=== PATIENT | male | born 1945 | race Caucasian/White ===

== ENCOUNTER 2018-10-02 19:30 | Observation (INO) | payer MEDICARE, BC ==
[2018-10-02] MEDS ORDERED: Sodium Chloride 0.9% 10 ML Syringe FLUSH PRN (20:25)
[2018-10-02] MEDS ORDERED: Sodium Chloride 0.9% 1,000 ML IV SCH (20:30)
--- NOTE | 2018-10-02 20:32 | EDM.PDOC ---
ED HPI GENERAL MEDICAL PROBLEM - General Chief Complaint: Fever Stated Complaint: FEVER/WEAKNESS Time Seen by Provider: 10/02/18 19:48 Source of Information: Reports: Patient, Family History Limitations: Reports: No Limitations - History of Present Illness INITIAL COMMENTS - FREE TEXT/NARRATIVE: Pleasant male, comes in with complaints of fever, lethargy, elevated blood sugars. He states he was fine this morning. He and his drove down from [facility]; she took over driving because she felt he was driving erratic. When they arrived, he went to take a nap; when he woke, he had a fever of 100.4. He has a hx of bacteremia, sepsis (once in 2014 and 2018), DM, GI bleed, AAA ( stable), small vessel disease, Blocked Left carotid artery. Has chronic pain and neuropathy Onset: Today - Related Data Allergies Allergy/AdvReac Type Severity Reaction Status Date / Time ceftriaxone [From Rocephin] Allergy Difficulty Verified 10/02/18 19:52 Swallowing lisinopril Allergy Cough Verified 10/02/18 19:52 Penicillins Allergy Difficulty Verified 10/02/18 19:52 Swallowing pneumococcal vaccine Allergy Difficulty Verified 10/02/18 20:04 [From Pneumovax 23] Breathing sildenafil [From Viagra] Allergy Other Verified 10/02/18 19:52 sulfamethoxazole Allergy Cannot Verified 10/02/18 19:52 [From Bactrim] Remember trimethoprim [From Bactrim] Allergy Cannot Verified 10/02/18 19:52 Remember Home Meds: Home Meds Acetaminophen 1,000 mg PO DAILY 10/02/18 [History] Acetaminophen/HYDROcodone [Hertel 325-5 MG] 1 tab PO Q4H PRN 10/02/18 [History] Ascorbate Calcium/Bioflavonoid [Karmen-C 500 MG] 500 mg PO DAILY 10/02/18 [ History] Aspirin [Halfprin] 81 mg PO DAILY 10/02/18 [History] Azelastine [Optivar 0.05% Ophth Soln] 2 spray IN DAILY 10/02/18 [History] Ferrous Sulfate 325 mg PO DAILY 10/02/18 [History] Gabapentin [Neurontin] 600 mg PO BID 10/02/18 [History] Insulin NPH/Insulin Reg,Human [Novolin 70-30] 27 units PO DAILY 10/02/18 [ History] Levothyroxine 25 mcg PO ACBREAKFAST 10/02/18 [History] Losartan [Cozaar] 100 mg PO DAILY 10/02/18 [History] Memantine HCl 10 mg PO ASDIRECTED 10/02/18 [History] Methocarbamol [Robaxin-750] 750 mg PO DAILY 10/02/18 [History] Metoprolol Succinate 25 mg PO DAILY 10/02/18 [History] Multivit-Min/FA/Lycopen/Lutein [Centrum Silver Men Tablet] 1 each PO DAILY 10/02 [History] Nitroglycerin [Nitrostat] 0.4 mg SL ASDIRECTED 10/02/18 [History] [place]-3/DHA/Epa/Fish Oil [Fish Oil 1,000 mg Softgel] 2,000 mg PO DAILY 10/02/18 [History] Omeprazole 20 mg PO DAILY 10/02/18 [History] Saliva Substitution Combo No.9 [Biotene] 237 ml MM ASDIRECTED 10/02/18 [History] Sennosides/Docusate Sodium [Docusate Sodium-Senna Tablet] 1 each PO ASDIRECTED 10/02/18 [History] Sertraline [Zoloft] 75 mg PO DAILY 10/02/18 [History] amLODIPine [Norvasc] 10 mg PO DAILY 10/02/18 [History] traMADol HCl [Tramadol HCl] 50 g PO BID 10/02/18 [History] traZODone HCl [Trazodone HCl] 50 mg PO DAILY 10/02/18 [History] Past Medical History HEENT History: Reports: Cataract, Impaired Vision Cardiovascular History: Reports: HI, Stents Respiratory History: Reports: COPD Gastrointestinal History: Reports: GI Bleed Other Gastrointestinal History: chronic intermittent GI bleed Musculoskeletal History: Reports: Back Pain, Chronic, Neck Pain, Chronic Other Musculoskeletal History: fusion of c-spine. fusion of lumbar spine. foot drop of left foot Neurological History: Reports: Neuropathy, Diabetic, Neuropathy, Peripheral Other Neuro History: dementia Psychiatric History: Reports: Dementia, Depression Endocrine/Metabolic History: Reports: Diabetes, Type II, Hypothyroidism Hematologic History: Reports: Anemia - Past Surgical History HEENT Surgical History: Reports: Tonsillectomy Cardiovascular Surgical History: Reports: Carotid Endarterectomy, Carotid Stents Other GI Surgeries/Procedures: coil in stomach Neurological Surgical History: Reports: C-Spine, Lumbar Spine, Spinal Fusion Social & Family History - Tobacco Use Smoking Status *Q: Former Smoker Years of Tobacco use: 30 Used Tobacco, but Quit: Yes Month/Year Tobacco Last Used: 03/1989 - Caffeine Use Caffeine Use: Reports: Coffee, Soda Caffeine Use Comment: daily coffee, diet soda daily - Recreational Drug Use Recreational Drug Use: No ED ROS GENERAL - Review of Systems Review Of Systems: See Below Constitutional: Reports: Fever, Malaise, Weakness, Fatigue HEENT: Reports: No Symptoms Respiratory: Reports: No Symptoms Cardiovascular: Reports: No Symptoms Endocrine: Reports: Fatigue, High Glucose GI/Abdominal: Reports: Abdominal Pain : Reports: No Symptoms Musculoskeletal: Reports: No Symptoms Skin: Reports: No Symptoms Neurological: Reports: Weakness Psychiatric: Reports: No Symptoms ED EXAM, GENERAL - Physical Exam Exam: See Below Exam Limited By: No Limitations General Appearance: Alert, WD/WN, No Apparent Distress Eye Exam: Bilateral Eye: EOMI, PERRL, Other (bilateral lens implants) Ears: Normal External Exam Nose: Normal Inspection Throat/Mouth: Normal Inspection, Normal Lips, Normal Teeth, Normal Gums, Normal Oropharynx, Normal Voice, No Airway Compromise Head: Atraumatic, Normocephalic Neck: Normal Inspection, Supple, Non-Tender, Full Range of Motion Respiratory/Chest: No Respiratory Distress, Lungs Clear, Normal Breath Sounds Cardiovascular: Regular Rate, Rhythm GI/Abdominal: Normal Bowel Sounds, Soft, Non-Tender Extremities: Normal Inspection, Normal Range of Motion Neurological: Alert, Oriented, CN II-XII Intact, Normal Cognition Psychiatric: Normal Affect, Normal Mood Skin Exam: Warm, Dry, Intact, Normal Color Course - Vital Signs Last Recorded V/S: Last Vital Signs Temp 99.3 F 10/02/18 19:53 Pulse 68 10/02/18 21:07 Resp 15 10/02/18 21:07 BP 129/104 H 10/02/18 21:07 Pulse Ox 93 L 10/02/18 21:07 - Orders/Labs/Meds Orders: Active Orders 24 hr Category Date Time Status Peripheral IV Care [RC] . DIRECTED Care 10/02/18 20:25 Active CULTURE BLOOD [BC] Stat Lab 10/02/18 21:40 Received CULTURE BLOOD [BC] Stat Lab 10/02/18 21:50 Received CULTURE URINE [RM] Stat Lab 10/02/18 21:32 Received Acetaminophen [Tylenol Extra Strength] Med 10/02/18 20:24 Active 1,000 mg PO Q12H PRN Sodium Chloride 0.9% [Normal Saline] 1,000 ml Med 10/02/18 20:30 Active IV ASDIRECTED Sodium Chloride 0.9% [Saline Flush] Med 10/02/18 20:25 Active 10 ml FLUSH ASDIRECTED PRN Peripheral IV Insertion Adult [OM.PC] Stat Oth 10/02/18 20:24 Ordered Medication Orders Acetaminophen (Tylenol Extra Strength) 1,000 mg PO Q12H PRN PRN Reason: Pain Last Admin: 10/02/18 20:45 Dose: 1,000 mg Sodium Chloride (Normal Saline) 1,000 mls @ 999 mls/hr IV ASDIRECTED EZ Last Admin: 10/02/18 20:45 Dose: 999 mls/hr Sodium Chloride (Saline Flush) 10 ml FLUSH ASDIRECTED PRN PRN Reason: Keep Vein Open Last Admin: 10/02/18 20:45 Dose: 10 ml Labs: Laboratory Tests 10/02/18 10/02/18 10/02/18 Range/Units 20:39 20:46 20:46 WBC 14.1 H (4.5-11.0) K/uL RBC 3.83 L (4.30-5.90) M/uL Hgb 12.2 (12.0-15.0) g/dL Hct 35.8 L (40.0-54.0) % MCV 94 (80-98) fL MCH 32 H (27-31) pg MCHC 34 (32-36) % Plt Count 263 (150-400) K/uL Neut % (Auto) 69 H (36-66) % Lymph % (Auto) 15 L (24-44) % [place] % (Auto) 15 H (2-6) % Eos % (Auto) 2 (2-4) % Baso % (Auto) 0 (0-1) % Sodium 136 L (140-148) mmol/L Potassium 4.6 (3.6-5.2) mmol/L Chloride 99 L (100-108) mmol/L Carbon Dioxide 26 (21-32) mmol/L Anion Gap 15.6 H (5.0-14.0) mmol/L BUN 23 H (7-18) mg/dL Creatinine 1.4 H (0.8-1.3) mg/dL Est Cr Clr Drug Dosing 48.56 mL/min Estimated GFR (MDRD) 49 L (>60) Glucose 293 H (74-106) mg/dL Lactic Acid (0.4-2.0) mmol/L Calcium 8.9 (8.5-10.1) mg/dL Total Bilirubin 0.6 (0.2-1.0) mg/dL AST 23 (15-37) U/L ALT 23 (12-78) U/L Alkaline Phosphatase 68 (46-116) U/L Troponin I < 0.017 (0.000-0.056) ng/mL C-Reactive Protein (0.0-0.3) mg/dL Total Protein 7.5 (6.4-8.2) g/dL Albumin 3.4 (3.4-5.0) g/dL Globulin 4.1 H (2.3-3.5) g/dL Albumin/Globulin Ratio 0.8 L (1.2-2.2) Urine Color Yellow Urine Appearance Clear Urine pH 5.0 (4.5-8.0) Ur Specific [place] 1.015 (1.008-1.030) Urine Protein Negative (NEGATIVE) mg/dL Urine Glucose (UA) >=1000 H (NEGATIVE) mg/dL Urine Ketones Negative (NEGATIVE) mg/dL Urine Occult Blood Large (NEGATIVE) Urine Nitrite Negative (NEGAITVE) Urine Bilirubin Negative (NEGATIVE) Urine Urobilinogen Normal (NORMAL) mg/dL Ur Leukocyte Esterase Moderate (NEGATIVE) Urine RBC 20-30 H (0-5) Urine WBC 30-40 H (0-5) Ur Epithelial Cells Few Amorphous Sediment Not seen Urine Bacteria Moderate Urine Mucus Not seen Ketones (NEGATIVE) 10/02/18 10/02/18 10/02/18 Range/Units 20:46 20:46 20:46 WBC (4.5-11.0) K/uL RBC (4.30-5.90) M/uL Hgb (12.0-15.0) g/dL Hct (40.0-54.0) % MCV (80-98) fL MCH (27-31) pg MCHC (32-36) % Plt Count (150-400) K/uL Neut % (Auto) (36-66) % Lymph % (Auto) (24-44) % [place] % (Auto) (2-6) % Eos % (Auto) (2-4) % Baso % (Auto) (0-1) % Sodium (140-148) mmol/L Potassium (3.6-5.2) mmol/L Chloride (100-108) mmol/L Carbon Dioxide (21-32) mmol/L Anion Gap (5.0-14.0) mmol/L BUN (7-18) mg/dL Creatinine (0.8-1.3) mg/dL Est Cr Clr Drug Dosing mL/min Estimated GFR (MDRD) (>60) Glucose (74-106) mg/dL Lactic Acid 1.8 (0.4-2.0) mmol/L Calcium (8.5-10.1) mg/dL Total Bilirubin (0.2-1.0) mg/dL AST (15-37) U/L ALT (12-78) U/L Alkaline Phosphatase (46-116) U/L Troponin I (0.000-0.056) ng/mL C-Reactive Protein 13.76 H (0.0-0.3) mg/dL Total Protein (6.4-8.2) g/dL Albumin (3.4-5.0) g/dL Globulin (2.3-3.5) g/dL Albumin/Globulin Ratio (1.2-2.2) Urine Color Urine Appearance Urine pH (4.5-8.0) Ur Specific [place] (1.008-1.030) Urine Protein (NEGATIVE) mg/dL Urine Glucose (UA) (NEGATIVE) mg/dL Urine Ketones (NEGATIVE) mg/dL Urine Occult Blood (NEGATIVE) Urine Nitrite (NEGAITVE) Urine Bilirubin (NEGATIVE) Urine Urobilinogen (NORMAL) mg/dL Ur Leukocyte Esterase (NEGATIVE) Urine RBC (0-5) Urine WBC (0-5) Ur Epithelial Cells Amorphous Sediment Urine Bacteria Urine Mucus Ketones Negative (NEGATIVE) Meds: Medications Generic Name Dose Route Start Last Admin Trade Name Freq PRN Reason Stop Dose Admin Acetaminophen 1,000 mg 10/02/18 20:24 10/02/18 20:45 Tylenol Extra Strength PO 1,000 mg Q12H PRN Administration Pain Sodium Chloride 1,000 mls @ 999 mls/hr 10/02/18 20:30 10/02/18 20:45 Normal Saline IV 999 mls/hr ASDIRECTED EZ Administration Sodium Chloride 10 ml 10/02/18 20:25 10/02/18 20:45 Saline Flush FLUSH 10 ml ASDIRECTED PRN Administration Keep Vein Open Discontinued Medications Generic Name Dose Route Start Last Admin Trade Name Freq PRN Reason Stop Dose Admin Ceftriaxone Sodium 1 gm/ 50 mls @ 100 mls/hr 10/02/18 21:39 10/02/18 22:10 Sodium Chloride IV 10/02/18 22:08 100 mls/hr ONETIME ONE Administration - Re-Assessments/Exams Free Text/Narrative Re-Assessment/Exam: 10/02/18 21:40 Patient is resting comfortably; Fever has broke, blood pressure is decreased. Dr. Donald is transmission builder; will come to see patient. Departure - Departure Time of Disposition: 21:41 Disposition: Refer to Observation Condition: Fair Clinical Impression: Acute cystitis with hematuria - Discharge Information *PRESCRIPTION DRUG MONITORING PROGRAM REVIEWED*: Not Applicable *COPY OF PRESCRIPTION DRUG MONITORING REPORT IN PATIENT KEEGAN: Not Applicable Referrals: PCP,None [Primary Care Provider] - Forms: ED Department Discharge ED Communication - Discussed Case With (1) Discussed Case With (1): Admitting Provider (Dr. Rodriguez called [phone] for consult and admission.), Other Provider (Spoke with Dr. Avalos, [facility]; he feels that as long as patient is in observation, and not septic, it is most appropriate that he stay here in [place] for continued treatment.) - Problem List & Annotations (1) Acute cystitis with hematuria SNOMED Code(s): 75835307, 52508819 Code(s): N30.01 - ACUTE CYSTITIS WITH HEMATURIA Status: Acute Priority: Medium Current Visit: Yes - My Orders Last 24 Hours: My Active Orders 10/02/18 20:24 Acetaminophen [Tylenol Extra Strength] 1,000 mg PO Q12H PRN Peripheral IV Insertion Adult [OM.PC] Stat 10/02/18 20:25 Peripheral IV Care [RC] . DIRECTED Sodium Chloride 0.9% [Saline Flush] 10 ml FLUSH ASDIRECTED PRN 10/02/18 20:30 Sodium Chloride 0.9% [Normal Saline] 1,000 ml IV ASDIRECTED 10/02/18 21:32 CULTURE URINE [RM] Stat 10/02/18 21:40 CULTURE BLOOD [BC] Stat 10/02/18 21:50 CULTURE BLOOD [BC] Stat - Assessment/Plan Last 24 Hours: My Active Orders 10/02/18 20:24 Acetaminophen [Tylenol Extra Strength] 1,000 mg PO Q12H PRN Peripheral IV Insertion Adult [OM.PC] Stat 10/02/18 20:25 Peripheral IV Care [RC] . DIRECTED Sodium Chloride 0.9% [Saline Flush] 10 ml FLUSH ASDIRECTED PRN 10/02/18 20:30 Sodium Chloride 0.9% [Normal Saline] 1,000 ml IV ASDIRECTED 10/02/18 21:32 CULTURE URINE [RM] Stat 10/02/18 21:40 CULTURE BLOOD [BC] Stat 10/02/18 21:50 CULTURE BLOOD [BC] Stat
[2018-10-02] MEDS: Acetaminophen 500 MG Tab PO PRN (20:45)
--- NOTE | 2018-10-02 21:30 | CRLCR ---
HISTORY: Weakness, fever. TECHNIQUE: One view chest. COMPARISON: No prior. FINDINGS: Cardiac size is within normal limits accounting for technique. No consolidation or acute pulmonary edema. No pneumothorax or pleural effusion. Degenerative changes of the spine. IMPRESSION: No acute disease. Dictated by Norberto Shaw MD @ 10/02/2018 9:27:57 PM Dictated by: Norberto Shaw MD @ 10/02/2018 21:28:01 (Electronically Signed)
[2018-10-02] MEDS ORDERED: cefTRIAXone 1 GM in Sodium Chloride 0.9% 50 ML IV ONE (21:39)
[2018-10-02] MEDS ORDERED: Ondansetron 4 MG Tab.DIS PO PRN (22:41)
[2018-10-02] MEDS ORDERED: Albuterol 0.083% 2.5 MG/3 ML Neb Soln NEB PRN (22:41)
--- NOTE | 2018-10-02 22:41 | PCM.HP ---
H&P History of Present Illness - General Date of Service: 10/02/18 Admit Problem/Dx: Complicated UTI - History of Present Illness Initial Comments - Free Text/Narative: 72-year-old male with past medical history of recurrent sepsis, CKD, diabetes on insulin, hypertension, iron deficiency anemia, hypothyroidism, GERD, CAD, depression, anxiety, recurrent GI bleeds came to the ED with a concerns of increased urinary frequency associated with abnormal smell in the urine. Patient accompanied with . reports that patient has intermittent confusion since last 2 to 3 hours. With that concerns patient came to the ED and patient lab work showed urinary tract infection. In the ED patient received Rocephin 1 dose and IV fluids. Lactic acid is 1.4. WBC count is elevated. Patient has recurrent fevers. Patient is a full code. Patient denies any chest pain, breathing difficulty, headaches, dizziness, lightheadedness, disturbance in bowel habits. Other review of systems are not significant. Generalized Pain Score (Numeric/FACES): 0 - Related Data Allergies/Adverse Reactions: Allergies Allergy/AdvReac Type Severity Reaction Status Date / Time ceftriaxone [From Rocephin] Allergy Difficulty Verified 10/02/18 19:52 Swallowing Penicillins Allergy Difficulty Verified 10/02/18 19:52 Swallowing pneumococcal vaccine Allergy Difficulty Verified 10/02/18 20:04 [From Pneumovax 23] Breathing sildenafil [From Viagra] Allergy Other Verified 10/02/18 23:14 sulfamethoxazole Allergy Cannot Verified 10/02/18 23:14 [From Bactrim] Remember trimethoprim [From Bactrim] Allergy Cannot Verified 10/02/18 19:52 Remember lisinopril AdvReac Cough Verified 10/03/18 08:10 Home Medications: Home Meds Acetaminophen 1,000 mg PO DAILY 10/02/18 [History] Acetaminophen/HYDROcodone [[place] 325-5 MG] 1 tab PO Q4H PRN 10/02/18 [History] Ascorbate Calcium/Bioflavonoid [[place]-C 500 MG] 500 mg PO DAILY 10/02/18 [ History] Aspirin [Halfprin] 81 mg PO DAILY 10/02/18 [History] Azelastine [Optivar 0.05% Ophth Soln] 2 spray IN DAILY 10/02/18 [History] Ferrous Sulfate 325 mg PO DAILY 10/02/18 [History] Gabapentin [Neurontin] 600 mg PO BID 10/02/18 [History] Insulin NPH/Insulin Reg,Human [Novolin 70-30] 27 units PO DAILY 10/02/18 [ History] Levothyroxine 25 mcg PO ACBREAKFAST 10/02/18 [History] Losartan [Cozaar] 100 mg PO DAILY 10/02/18 [History] Memantine HCl 10 mg PO ASDIRECTED 10/02/18 [History] Methocarbamol [Robaxin-750] 750 mg PO DAILY 10/02/18 [History] Metoprolol Succinate 25 mg PO DAILY 10/02/18 [History] Multivit-Min/FA/Lycopen/Lutein [Centrum Silver Men Tablet] 1 each PO DAILY 10/02 [History] Nitroglycerin [Nitrostat] 0.4 mg SL ASDIRECTED 10/02/18 [History] [place]-3/DHA/Epa/Fish Oil [Fish Oil 1,000 mg Softgel] 2,000 mg PO DAILY 10/02/18 [History] Omeprazole 20 mg PO DAILY 10/02/18 [History] Saliva Substitution Combo No.9 [Biotene] 237 ml MM ASDIRECTED 10/02/18 [History] Sennosides/Docusate Sodium [Docusate Sodium-Senna Tablet] 1 each PO ASDIRECTED 10/02/18 [History] Sertraline [Zoloft] 75 mg PO DAILY 10/02/18 [History] amLODIPine [Norvasc] 10 mg PO DAILY 10/02/18 [History] traMADol HCl [Tramadol HCl] 50 g PO BID 10/02/18 [History] traZODone HCl [Trazodone HCl] 50 mg PO DAILY 10/02/18 [History] Ciprofloxacin [Ciprofloxacin HCl] 500 mg PO BID #16 tab 10/03/18 [Rx] Insulin NPH/Insulin Reg,Human [Novolin 70-30] 12 unit SQ WITHDINNER 10/03/18 [ History] Past Medical History HEENT History: Reports: Cataract, Impaired Vision Cardiovascular History: Reports: MS, Stents Respiratory History: Reports: COPD Gastrointestinal History: Reports: GI Bleed Other Gastrointestinal History: chronic intermittent GI bleed Musculoskeletal History: Reports: Back Pain, Chronic, Neck Pain, Chronic Other Musculoskeletal History: fusion of c-spine. fusion of lumbar spine. foot drop of left foot Neurological History: Reports: Neuropathy, Diabetic, Neuropathy, Peripheral Other Neuro History: dementia Psychiatric History: Reports: Dementia, Depression Endocrine/Metabolic History: Reports: Diabetes, Type II, Hypothyroidism Hematologic History: Reports: Anemia - Past Surgical History HEENT Surgical History: Reports: Tonsillectomy Cardiovascular Surgical History: Reports: Carotid Endarterectomy, Carotid Stents Other GI Surgeries/Procedures: coil in stomach Neurological Surgical History: Reports: C-Spine, Lumbar Spine, Spinal Fusion Social & Family History - Family History Family Medical History: Noncontributory - Tobacco Use Smoking Status *Q: Former Smoker Years of Tobacco use: 30 Used Tobacco, but Quit: Yes Month/Year Tobacco Last Used: 03/1989 - Caffeine Use Caffeine Use: Reports: Coffee, Soda Caffeine Use Comment: daily coffee, diet soda daily - Recreational Drug Use Recreational Drug Use: No H&P Review of Systems - Review of Systems: Review Of Systems: See Below General: Reports: Fever, Chills, Malaise, Weakness, Fatigue Pulmonary: Denies: Shortness of Breath, Wheezing, Pleuritic Chest Pain, Cough, Sputum Cardiovascular: Denies: Chest Pain, Palpitations, Dyspnea on Exertion, Orthopnea , PND, Lightheadedness, Syncope Gastrointestinal: Reports: Abdominal Pain, Nausea, Vomiting. Denies: Anorexia, Black Stool, Bloody Stool, Melena, Mucous in Stool, Stool Incontinence Genitourinary: Reports: Dysuria, Frequency, Burning, Urgency, Hematuria. Denies : Pain, Incontinence Psychiatric: Reports: Confusion. Denies: Depression, Mood Lability, Anxiety, Agitation Neurological: Denies: Confusion, Dizziness, Headache Hematologic/Lymphatic: Denies: Anemia, Easy Bleeding Exam - Exam Exam: See Below - Vital Signs Vital Signs: Last Vital Signs Temp 37.4 C 10/02/18 19:53 Pulse 68 10/02/18 21:07 Resp 15 10/02/18 21:07 BP 129/104 H 10/02/18 21:07 Pulse Ox 93 L 10/02/18 21:07 Weight: 92.986 kg - Exam General: Alert, Oriented Neck: Supple, Trachea Midline Lungs: Clear to Auscultation, Normal Respiratory Effort. No: Decreased Breath Sounds, Crackles, Rales Cardiovascular: Regular Rate, Regular Rhythm GI/Abdominal Exam: Normal Bowel Sounds, Soft, Non-Tender, No Organomegaly, No Distention, No Abnormal Bruit Extremities: Normal Inspection, Normal Range of Motion, Non-Tender, No Pedal Edema, Normal Capillary Refill Skin: Warm, Dry, Intact Neuro Extensive - Mental Status: Alert, Oriented x3, Memory Intact Psychiatric: Alert, Normal Mood, Anxious, Agitated - Patient Data Lab Results Last 24 hrs: Laboratory Results - last 24 hr 10/02/18 10/02/18 10/02/18 Range/Units 20:39 20:46 20:46 WBC 14.1 H (4.5-11.0) K/uL RBC 3.83 L (4.30-5.90) M/uL Hgb 12.2 (12.0-15.0) g/dL Hct 35.8 L (40.0-54.0) % MCV 94 (80-98) fL MCH 32 H (27-31) pg MCHC 34 (32-36) % Plt Count 263 (150-400) K/uL Neut % (Auto) 69 H (36-66) % Lymph % (Auto) 15 L (24-44) % [place] % (Auto) 15 H (2-6) % Eos % (Auto) 2 (2-4) % Baso % (Auto) 0 (0-1) % Sodium 136 L (140-148) mmol/L Potassium 4.6 (3.6-5.2) mmol/L Chloride 99 L (100-108) mmol/L Carbon Dioxide 26 (21-32) mmol/L Anion Gap 15.6 H (5.0-14.0) mmol/L BUN 23 H (7-18) mg/dL Creatinine 1.4 H (0.8-1.3) mg/dL Est Cr Clr Drug Dosing 48.56 mL/min Estimated GFR (MDRD) 49 L (>60) Glucose 293 H (74-106) mg/dL Lactic Acid (0.4-2.0) mmol/L Calcium 8.9 (8.5-10.1) mg/dL Total Bilirubin 0.6 (0.2-1.0) mg/dL AST 23 (15-37) U/L ALT 23 (12-78) U/L Alkaline Phosphatase 68 (46-116) U/L Troponin I < 0.017 (0.000-0.056) ng/mL C-Reactive Protein (0.0-0.3) mg/dL Total Protein 7.5 (6.4-8.2) g/dL Albumin 3.4 (3.4-5.0) g/dL Globulin 4.1 H (2.3-3.5) g/dL Albumin/Globulin Ratio 0.8 L (1.2-2.2) Urine Color Yellow Urine Appearance Clear Urine pH 5.0 (4.5-8.0) Ur Specific [place] 1.015 (1.008-1.030) Urine Protein Negative (NEGATIVE) mg/dL Urine Glucose (UA) >=1000 H (NEGATIVE) mg/dL Urine Ketones Negative (NEGATIVE) mg/dL Urine Occult Blood Large (NEGATIVE) Urine Nitrite Negative (NEGAITVE) Urine Bilirubin Negative (NEGATIVE) Urine Urobilinogen Normal (NORMAL) mg/dL Ur Leukocyte Esterase Moderate (NEGATIVE) Urine RBC 20-30 H (0-5) Urine WBC 30-40 H (0-5) Ur Epithelial Cells Few Amorphous Sediment Not seen Urine Bacteria Moderate Urine Mucus Not seen Ketones (NEGATIVE) 10/02/18 10/02/18 10/02/18 Range/Units 20:46 20:46 20:46 WBC (4.5-11.0) K/uL RBC (4.30-5.90) M/uL Hgb (12.0-15.0) g/dL Hct (40.0-54.0) % MCV (80-98) fL MCH (27-31) pg MCHC (32-36) % Plt Count (150-400) K/uL Neut % (Auto) (36-66) % Lymph % (Auto) (24-44) % [place] % (Auto) (2-6) % Eos % (Auto) (2-4) % Baso % (Auto) (0-1) % Sodium (140-148) mmol/L Potassium (3.6-5.2) mmol/L Chloride (100-108) mmol/L Carbon Dioxide (21-32) mmol/L Anion Gap (5.0-14.0) mmol/L BUN (7-18) mg/dL Creatinine (0.8-1.3) mg/dL Est Cr Clr Drug Dosing mL/min Estimated GFR (MDRD) (>60) Glucose (74-106) mg/dL Lactic Acid 1.8 (0.4-2.0) mmol/L Calcium (8.5-10.1) mg/dL Total Bilirubin (0.2-1.0) mg/dL AST (15-37) U/L ALT (12-78) U/L Alkaline Phosphatase (46-116) U/L Troponin I (0.000-0.056) ng/mL C-Reactive Protein 13.76 H (0.0-0.3) mg/dL Total Protein (6.4-8.2) g/dL Albumin (3.4-5.0) g/dL Globulin (2.3-3.5) g/dL Albumin/Globulin Ratio (1.2-2.2) Urine Color Urine Appearance Urine pH (4.5-8.0) Ur Specific [place] (1.008-1.030) Urine Protein (NEGATIVE) mg/dL Urine Glucose (UA) (NEGATIVE) mg/dL Urine Ketones (NEGATIVE) mg/dL Urine Occult Blood (NEGATIVE) Urine Nitrite (NEGAITVE) Urine Bilirubin (NEGATIVE) Urine Urobilinogen (NORMAL) mg/dL Ur Leukocyte Esterase (NEGATIVE) Urine RBC (0-5) Urine WBC (0-5) Ur Epithelial Cells Amorphous Sediment Urine Bacteria Urine Mucus Ketones Negative (NEGATIVE) Result Diagrams: 10/04/18 05:32 10/04/18 05:32 - Problem List (1) Anxiety and depression SNOMED Code(s): 914006192 ICD Code: F41.9 - ANXIETY DISORDER, UNSPECIFIED; F32.9 - MAJOR DEPRESSIVE DISORDER, SINGLE EPISODE, UNSPECIFIED Status: Acute (2) Recurrent gastrointestinal hemorrhage SNOMED Code(s): 060776016 ICD Code: K92.2 - GASTROINTESTINAL HEMORRHAGE, UNSPECIFIED Status: Acute (3) GERD (gastroesophageal reflux disease) SNOMED Code(s): 481807683 ICD Code: K21.9 - GASTRO-ESOPHAGEAL REFLUX DISEASE WITHOUT ESOPHAGITIS Status: Acute (4) Hypertension SNOMED Code(s): 79926036 ICD Code: I10 - ESSENTIAL (PRIMARY) HYPERTENSION Status: Acute (5) CAD (coronary artery disease) SNOMED Code(s): 84929373 ICD Code: I25.10 - ATHSCL HEART DISEASE OF [place] CORONARY ARTERY W/O ANG PCTRS Status: Acute (6) Acute cystitis with hematuria SNOMED Code(s): 34599671, 88271852 ICD Code: N30.01 - ACUTE CYSTITIS WITH HEMATURIA Status: Acute Priority: Medium (7) CKD (chronic kidney disease), stage III SNOMED Code(s): 936053218 ICD Code: N18.3 - CHRONIC KIDNEY DISEASE, STAGE 3 (MODERATE) Status: Chronic (8) Diabetes mellitus, type II, insulin dependent SNOMED Code(s): 166830426 ICD Code: E11.9 - TYPE 2 DIABETES MELLITUS WITHOUT COMPLICATIONS; Z79.4 - FPC (CURRENT) USE OF INSULIN Status: Chronic (9) Hypothyroid SNOMED Code(s): 64259876 ICD Code: E03.9 - HYPOTHYROIDISM, UNSPECIFIED Status: Acute Problem List Initiated/Reviewed/Updated: Yes Orders Last 24hrs: Active Orders 24 hr Category Date Time Status Peripheral IV Care [RC] . DIRECTED Care 10/02/18 20:25 Active CULTURE BLOOD [BC] Stat Lab 10/02/18 21:40 Received CULTURE BLOOD [BC] Stat Lab 10/02/18 21:50 Received CULTURE URINE [RM] Stat Lab 10/02/18 21:32 Received Acetaminophen [Tylenol Extra Strength] Med 10/02/18 20:24 Active 1,000 mg PO Q12H PRN Sodium Chloride 0.9% [Normal Saline] 1,000 ml Med 10/02/18 20:30 Active IV ASDIRECTED Sodium Chloride 0.9% [Saline Flush] Med 10/02/18 20:25 Active 10 ml FLUSH ASDIRECTED PRN Peripheral IV Insertion Adult [OM.PC] Stat Oth 10/02/18 20:24 Ordered Medication Orders Acetaminophen (Tylenol Extra Strength) 1,000 mg PO Q12H PRN PRN Reason: Pain Last Admin: 10/02/18 20:45 Dose: 1,000 mg Sodium Chloride (Normal Saline) 1,000 mls @ 999 mls/hr IV ASDIRECTED EZ Last Admin: 10/02/18 20:45 Dose: 999 mls/hr Sodium Chloride (Saline Flush) 10 ml FLUSH ASDIRECTED PRN PRN Reason: Keep Vein Open Last Admin: 10/02/18 20:45 Dose: 10 ml Assessment/Plan Comment:: 72-year-old male with past medical history of recurrent sepsis, CKD, diabetes on insulin, hypertension, iron deficiency anemia, hypothyroidism, GERD, CAD, depression, anxiety came to the ED with a concerns of increased urinary frequency associated with confusion and diagnosed with complicated UTI and admitted into the hospital in observational status. Patient received 1 dose Rocephin We will continue Rocephin at this point CBC CMP tomorrow We will follow blood culture, urine culture report Maintenance IV fluids 150 mL/h normal saline Sliding scale insulin for diabetes Accu-Cheks before meals and at bedtime IV fluids normal saline 150 mL/h Diet low sodium and low carb diet [place] catheter not indicated CODE STATUS full code DVT prophylaxis heparin subcu 8 hourly Observational status
[2018-10-02] MEDS: Sodium Chloride 0.9% 1,000 ML IV SCH (23:55)
[2018-10-02] MEDS: cefTRIAXone 2 GM in Sodium Chloride 0.9% 50 ML IV SCH (23:57)
[2018-10-02] MEDS: Heparin Sodium 5,000 Units/ML Vial SUBCUT SCH (23:58)
[2018-10-03] MEDS ORDERED: traZODone 50 MG Tab PO ONE (00:57)
[2018-10-03] MEDS: cefTRIAXone 2 GM in Sodium Chloride 0.9% 50 ML IV SCH (03:34)
[2018-10-03] MEDS: Heparin Sodium 5,000 Units/ML Vial SUBCUT SCH ×3 (05:47→21:08)
[2018-10-03] MEDS: Sodium Chloride 0.9% 1,000 ML IV SCH ×2 (07:20→15:00)
[2018-10-03] MEDS: Acetaminophen 500 MG Tab PO PRN (07:26)
[2018-10-03] MEDS: Insulin Lispro 100 Unit/ML 3 ML KwikPen SUBCUT SCH ×4 (10:51→21:09)
--- NOTE | 2018-10-03 10:56 | PCM.DCSUM1 ---
Discharge Summary - Hospital Course Brief History: 73-year-old male with history of insulin-dependent diabetes, stage III chronic kidney disease and previous episodes of sepsis secondary to urinary tract infections who presented with fever and dysuria. He was admitted to observation for management of a urinary tract infection. Diagnosis: Stroke: No - Discharge Data Discharge Date: 10/03/18 Discharge Disposition: Home, Self-Care 01 Condition: Good - Discharge Diagnosis/Problem(s) (1) Acute cystitis with hematuria SNOMED Code(s): 25262420, 56507822 ICD Code: N30.01 - ACUTE CYSTITIS WITH HEMATURIA Status: Acute Priority: Medium Current Visit: Yes (2) Diabetes mellitus, type II, insulin dependent SNOMED Code(s): 952788195 ICD Code: E11.9 - TYPE 2 DIABETES MELLITUS WITHOUT COMPLICATIONS; Z79.4 - BOTTLE LABEL INSPECTOR (CURRENT) USE OF INSULIN Status: Chronic Current Visit: Yes (3) CKD (chronic kidney disease), stage III SNOMED Code(s): 759809630 ICD Code: N18.3 - CHRONIC KIDNEY DISEASE, STAGE 3 (MODERATE) Status: Chronic Current Visit: Yes - Patient Summary/Data Consults: Consultations 10/02/18 22:41 OT Evaluation and Treatment [CONS] Routine Please Evaluate and Treat. OT Reason for Consult: Strengthening This query below is only for informational purposes and is not editable. PT Evaluation and Treatment [CONS] Routine Please Evaluate and Treat. PT Reason for Consult: Strengthening This query below is only for informational purposes and is not editable. - Patient Instructions Diet: Diabetic Diet Activity: As Tolerated Showering/Bathing: May Shower Notify Provider of: Fever, Increased Pain Other/Special Instructions: 1. You were in the hospital for management of a urinary tract infection. Your urine culture is pending at this time and we have not determined the causative bacteria as of yet. I recommend additional antibiotic therapy with ciprofloxacin. These take 500 mg twice daily for 8 more days. Your first dose will be due tonight. I will contact you if the culture returns with a bacteria that is resistant to the antibiotic. I do recommend that you take a probiotic while you are taking antibiotics. 2. Continue your other home medications as previously prescribed. 3. Seek medical attention if you fever greater than 101, severe abdominal pain or if you develop profound weakness - Discharge Plan *PRESCRIPTION DRUG MONITORING PROGRAM REVIEWED*: Not Applicable *COPY OF PRESCRIPTION DRUG MONITORING REPORT IN PATIENT KEEGAN: Not Applicable Prescriptions/Med Rec: Ciprofloxacin [Ciprofloxacin HCl] 500 mg PO BID #16 tab Home Medications: Home Meds Acetaminophen 1,000 mg PO DAILY 10/02/18 [History] Acetaminophen/HYDROcodone [[place] 325-5 MG] 1 tab PO Q4H PRN 10/02/18 [History] Ascorbate Calcium/Bioflavonoid [[place]-C 500 MG] 500 mg PO DAILY 10/02/18 [ History] Aspirin [Halfprin] 81 mg PO DAILY 10/02/18 [History] Azelastine [Optivar 0.05% Ophth Soln] 2 spray IN DAILY 10/02/18 [History] Ferrous Sulfate 325 mg PO DAILY 10/02/18 [History] Gabapentin [Neurontin] 600 mg PO BID 10/02/18 [History] Insulin NPH/Insulin Reg,Human [Novolin 70-30] 27 units PO DAILY 10/02/18 [ History] Levothyroxine 25 mcg PO ACBREAKFAST 10/02/18 [History] Losartan [Cozaar] 100 mg PO DAILY 10/02/18 [History] Memantine HCl 10 mg PO ASDIRECTED 10/02/18 [History] Methocarbamol [Robaxin-750] 750 mg PO DAILY 10/02/18 [History] Metoprolol Succinate 25 mg PO DAILY 10/02/18 [History] Multivit-Min/FA/Lycopen/Lutein [Centrum Silver Men Tablet] 1 each PO DAILY 10/02 [History] Nitroglycerin [Nitrostat] 0.4 mg SL ASDIRECTED 10/02/18 [History] [place]-3/DHA/Epa/Fish Oil [Fish Oil 1,000 mg Softgel] 2,000 mg PO DAILY 10/02/18 [History] Omeprazole 20 mg PO DAILY 10/02/18 [History] Saliva Substitution Combo No.9 [Biotene] 237 ml MM ASDIRECTED 10/02/18 [History] Sennosides/Docusate Sodium [Docusate Sodium-Senna Tablet] 1 each PO ASDIRECTED 10/02/18 [History] Sertraline [Zoloft] 75 mg PO DAILY 10/02/18 [History] amLODIPine [Norvasc] 10 mg PO DAILY 10/02/18 [History] traMADol HCl [Tramadol HCl] 50 g PO BID 10/02/18 [History] traZODone HCl [Trazodone HCl] 50 mg PO DAILY 10/02/18 [History] Ciprofloxacin [Ciprofloxacin HCl] 500 mg PO BID #16 tab 10/03/18 [Rx] Oxygen Therapy Mode: Room Air Patient Handouts: Urinary Tract Infection, Adult, Ciprofloxacin tablets Referrals: PCP,None [Primary Care Provider] - (Follow-up as needed if symptoms do not continue to get better or if they get worse) - Discharge Summary/Plan Comment DC Time >30 min.: No - Patient Data Vitals - Most Recent: Last Vital Signs Temp 36.4 C 10/03/18 10:49 Pulse 66 10/03/18 10:49 Resp 18 10/03/18 10:49 BP 121/61 10/03/18 10:49 Pulse Ox 93 L 10/03/18 10:49 Weight - Most Recent: 96.797 kg I&O - Last 24 hours: Intake & Output 10/02/18 10/03/18 10/03/18 22:59 06:59 14:59 Intake Total 100 Output Total 1225 Balance -1125 Lab Results - Last 24 hrs: Laboratory Results - last 24 hr 10/02/18 10/02/18 10/02/18 Range/Units 20:39 20:46 20:46 WBC 14.1 H (4.5-11.0) K/uL RBC 3.83 L (4.30-5.90) M/uL Hgb 12.2 (12.0-15.0) g/dL Hct 35.8 L (40.0-54.0) % MCV 94 (80-98) fL MCH 32 H (27-31) pg MCHC 34 (32-36) % Plt Count 263 (150-400) K/uL Neut % (Auto) 69 H (36-66) % Lymph % (Auto) 15 L (24-44) % [place] % (Auto) 15 H (2-6) % Eos % (Auto) 2 (2-4) % Baso % (Auto) 0 (0-1) % Sodium 136 L (140-148) mmol/L Potassium 4.6 (3.6-5.2) mmol/L Chloride 99 L (100-108) mmol/L Carbon Dioxide 26 (21-32) mmol/L Anion Gap 15.6 H (5.0-14.0) mmol/L BUN 23 H (7-18) mg/dL Creatinine 1.4 H (0.8-1.3) mg/dL Est Cr Clr Drug Dosing 48.56 mL/min Estimated GFR (MDRD) 49 L (>60) Glucose 293 H (74-106) mg/dL Lactic Acid (0.4-2.0) mmol/L Calcium 8.9 (8.5-10.1) mg/dL Total Bilirubin 0.6 (0.2-1.0) mg/dL AST 23 (15-37) U/L ALT 23 (12-78) U/L Alkaline Phosphatase 68 (46-116) U/L Troponin I < 0.017 (0.000-0.056) ng/mL C-Reactive Protein (0.0-0.3) mg/dL Total Protein 7.5 (6.4-8.2) g/dL Albumin 3.4 (3.4-5.0) g/dL Globulin 4.1 H (2.3-3.5) g/dL Albumin/Globulin Ratio 0.8 L (1.2-2.2) Urine Color Yellow Urine Appearance Clear Urine pH 5.0 (4.5-8.0) Ur Specific [place] 1.015 (1.008-1.030) Urine Protein Negative (NEGATIVE) mg/dL Urine Glucose (UA) >=1000 H (NEGATIVE) mg/dL Urine Ketones Negative (NEGATIVE) mg/dL Urine Occult Blood Large (NEGATIVE) Urine Nitrite Negative (NEGAITVE) Urine Bilirubin Negative (NEGATIVE) Urine Urobilinogen Normal (NORMAL) mg/dL Ur Leukocyte Esterase Moderate (NEGATIVE) Urine RBC 20-30 H (0-5) Urine WBC 30-40 H (0-5) Ur Epithelial Cells Few Amorphous Sediment Not seen Urine Bacteria Moderate Urine Mucus Not seen Ketones (NEGATIVE) 10/02/18 10/02/18 10/02/18 Range/Units 20:46 20:46 20:46 WBC (4.5-11.0) K/uL RBC (4.30-5.90) M/uL Hgb (12.0-15.0) g/dL Hct (40.0-54.0) % MCV (80-98) fL MCH (27-31) pg MCHC (32-36) % Plt Count (150-400) K/uL Neut % (Auto) (36-66) % Lymph % (Auto) (24-44) % [place] % (Auto) (2-6) % Eos % (Auto) (2-4) % Baso % (Auto) (0-1) % Sodium (140-148) mmol/L Potassium (3.6-5.2) mmol/L Chloride (100-108) mmol/L Carbon Dioxide (21-32) mmol/L Anion Gap (5.0-14.0) mmol/L BUN (7-18) mg/dL Creatinine (0.8-1.3) mg/dL Est Cr Clr Drug Dosing mL/min Estimated GFR (MDRD) (>60) Glucose (74-106) mg/dL Lactic Acid 1.8 (0.4-2.0) mmol/L Calcium (8.5-10.1) mg/dL Total Bilirubin (0.2-1.0) mg/dL AST (15-37) U/L ALT (12-78) U/L Alkaline Phosphatase (46-116) U/L Troponin I (0.000-0.056) ng/mL C-Reactive Protein 13.76 H (0.0-0.3) mg/dL Total Protein (6.4-8.2) g/dL Albumin (3.4-5.0) g/dL Globulin (2.3-3.5) g/dL Albumin/Globulin Ratio (1.2-2.2) Urine Color Urine Appearance Urine pH (4.5-8.0) Ur Specific [place] (1.008-1.030) Urine Protein (NEGATIVE) mg/dL Urine Glucose (UA) (NEGATIVE) mg/dL Urine Ketones (NEGATIVE) mg/dL Urine Occult Blood (NEGATIVE) Urine Nitrite (NEGAITVE) Urine Bilirubin (NEGATIVE) Urine Urobilinogen (NORMAL) mg/dL Ur Leukocyte Esterase (NEGATIVE) Urine RBC (0-5) Urine WBC (0-5) Ur Epithelial Cells Amorphous Sediment Urine Bacteria Urine Mucus Ketones Negative (NEGATIVE) 10/03/18 10/03/18 Range/Units 05:50 05:50 WBC 13.3 H (4.5-11.0) K/uL RBC 3.73 L (4.30-5.90) M/uL Hgb 12.1 (12.0-15.0) g/dL Hct 35.3 L (40.0-54.0) % MCV 95 (80-98) fL MCH 32 H (27-31) pg MCHC 34 (32-36) % Plt Count 227 (150-400) K/uL Neut % (Auto) 70 H (36-66) % Lymph % (Auto) 13 L (24-44) % [place] % (Auto) 13 H (2-6) % Eos % (Auto) 3 (2-4) % Baso % (Auto) 0 (0-1) % Sodium 139 L (140-148) mmol/L Potassium 4.2 (3.6-5.2) mmol/L Chloride 105 (100-108) mmol/L Carbon Dioxide 23 (21-32) mmol/L Anion Gap 15.2 H (5.0-14.0) mmol/L BUN 22 H (7-18) mg/dL Creatinine 1.3 (0.8-1.3) mg/dL Est Cr Clr Drug Dosing 52.29 mL/min Estimated GFR (MDRD) 54 L (>60) Glucose 260 H (74-106) mg/dL Lactic Acid (0.4-2.0) mmol/L Calcium 8.7 (8.5-10.1) mg/dL Total Bilirubin (0.2-1.0) mg/dL AST (15-37) U/L ALT (12-78) U/L Alkaline Phosphatase (46-116) U/L Troponin I (0.000-0.056) ng/mL C-Reactive Protein (0.0-0.3) mg/dL Total Protein (6.4-8.2) g/dL Albumin (3.4-5.0) g/dL Globulin (2.3-3.5) g/dL Albumin/Globulin Ratio (1.2-2.2) Urine Color Urine Appearance Urine pH (4.5-8.0) Ur Specific [place] (1.008-1.030) Urine Protein (NEGATIVE) mg/dL Urine Glucose (UA) (NEGATIVE) mg/dL Urine Ketones (NEGATIVE) mg/dL Urine Occult Blood (NEGATIVE) Urine Nitrite (NEGAITVE) Urine Bilirubin (NEGATIVE) Urine Urobilinogen (NORMAL) mg/dL Ur Leukocyte Esterase (NEGATIVE) Urine RBC (0-5) Urine WBC (0-5) Ur Epithelial Cells Amorphous Sediment Urine Bacteria Urine Mucus Ketones (NEGATIVE) Med Orders - Current: Current Medications Acetaminophen (Tylenol Extra Strength) 1,000 mg PO Q12H PRN PRN Reason: Pain Last Admin: 10/03/18 07:26 Dose: 1,000 mg Albuterol (Proventil Neb Soln) 2.5 mg NEB Q4H PRN PRN Reason: Shortness Of Breath/wheezing Heparin Sodium (Porcine) (Heparin Sodium) 5,000 units SUBCUT Q8H [facility] Sodium Chloride (Normal Saline) 1,000 mls @ 125 mls/hr IV ASDIRECTED [facility] Last Admin: 10/03/18 07:20 Dose: 125 mls/hr Insulin Human Lispro (Humalog) 0 unit SUBCUT TIDMEALS [facility]; Protocol Last Admin: 10/03/18 10:51 Dose: Not Given Ondansetron HCl (Zofran Odt) 4 mg PO Q6H PRN PRN Reason: Nausea able to take PO Senna/Docusate Sodium (Senna Plus) 1 tab PO BID PRN PRN Reason: Constipation Sodium Chloride (Saline Flush) 10 ml FLUSH ASDIRECTED PRN PRN Reason: Keep Vein Open Last Admin: 10/02/18 20:45 Dose: 10 ml Discontinued Medications Heparin Sodium (Porcine) (Heparin Sodium) 5,000 units SUBCUT Q8H [facility] Last Admin: 10/03/18 05:47 Dose: Not Given Sodium Chloride (Normal Saline) 1,000 mls @ 999 mls/hr IV ASDIRECTED [facility] Last Admin: 10/02/18 20:45 Dose: 999 mls/hr Ceftriaxone Sodium 1 gm/ (Sodium Chloride) 50 mls @ 100 mls/hr IV ONETIME ONE Stop: 10/02/18 22:08 Last Admin: 10/02/18 22:10 Dose: 100 mls/hr Ceftriaxone Sodium 2 gm/ (Sodium Chloride) 50 mls @ 100 mls/hr IV Q24H [facility] Last Admin: 10/03/18 03:34 Dose: Not Given Ceftriaxone Sodium 2 gm/ (Sodium Chloride) 50 mls @ 100 mls/hr IV Q24H [facility] Trazodone HCl (Trazodone) 50 mg PO BEDTIME ONE Stop: 10/03/18 00:58 Last Admin: 10/03/18 02:44 Dose: Not Given - Exam Quality Assessment: Denies: Supplemental Oxygen General: Reports: Alert, Oriented, Cooperative, No Acute Distress Lungs: Reports: Normal Respiratory Effort Cardiovascular: Reports: Regular Rate, Regular Rhythm GI/Abdominal Exam: Soft, No Distention Extremities: No Pedal Edema Psy/Mental Status: Reports: Alert, Normal Affect
[2018-10-03] MEDS ORDERED: Acetaminophen/HYDROcodone 325-5 MG Tab PO PRN (14:32)
--- NOTE | 2018-10-03 14:37 | PCM.PN ---
- General Info Date of Service: 10/03/18 Subjective Update: No acute events overnight. Vital signs have remained stable. Patient is feeling better today and was interested in going home but he continues to have fevers. He did well with physical therapy this morning and is thought to be independent. No complaints of abdominal pain or nausea. White blood cell count slightly better today. Cultures pending. Functional Status: Reports: Pain Controlled, Tolerating Diet - Review of Systems General: Reports: Fever, Weakness - Patient Data Vitals - Most Recent: Last Vital Signs Temp 36.4 C 10/03/18 10:49 Pulse 66 10/03/18 10:49 Resp 18 10/03/18 10:49 BP 121/61 10/03/18 10:49 Pulse Ox 93 L 10/03/18 10:49 Weight - Most Recent: 96.797 kg I&O - Last 24 Hours: Intake & Output 10/02/18 10/03/18 10/03/18 22:59 06:59 14:59 Intake Total 100 820 Output Total 1225 Balance -1125 820 Lab Results Last 24 Hours: Laboratory Results - last 24 hr 10/02/18 10/02/18 10/02/18 Range/Units 20:39 20:46 20:46 WBC 14.1 H (4.5-11.0) K/uL RBC 3.83 L (4.30-5.90) M/uL Hgb 12.2 (12.0-15.0) g/dL Hct 35.8 L (40.0-54.0) % MCV 94 (80-98) fL MCH 32 H (27-31) pg MCHC 34 (32-36) % Plt Count 263 (150-400) K/uL Neut % (Auto) 69 H (36-66) % Lymph % (Auto) 15 L (24-44) % [place] % (Auto) 15 H (2-6) % Eos % (Auto) 2 (2-4) % Baso % (Auto) 0 (0-1) % Sodium 136 L (140-148) mmol/L Potassium 4.6 (3.6-5.2) mmol/L Chloride 99 L (100-108) mmol/L Carbon Dioxide 26 (21-32) mmol/L Anion Gap 15.6 H (5.0-14.0) mmol/L BUN 23 H (7-18) mg/dL Creatinine 1.4 H (0.8-1.3) mg/dL Est Cr Clr Drug Dosing 48.56 mL/min Estimated GFR (MDRD) 49 L (>60) Glucose 293 H (74-106) mg/dL Lactic Acid (0.4-2.0) mmol/L Calcium 8.9 (8.5-10.1) mg/dL Total Bilirubin 0.6 (0.2-1.0) mg/dL AST 23 (15-37) U/L ALT 23 (12-78) U/L Alkaline Phosphatase 68 (46-116) U/L Troponin I < 0.017 (0.000-0.056) ng/mL C-Reactive Protein (0.0-0.3) mg/dL Total Protein 7.5 (6.4-8.2) g/dL Albumin 3.4 (3.4-5.0) g/dL Globulin 4.1 H (2.3-3.5) g/dL Albumin/Globulin Ratio 0.8 L (1.2-2.2) Urine Color Yellow Urine Appearance Clear Urine pH 5.0 (4.5-8.0) Ur Specific [place] 1.015 (1.008-1.030) Urine Protein Negative (NEGATIVE) mg/dL Urine Glucose (UA) >=1000 H (NEGATIVE) mg/dL Urine Ketones Negative (NEGATIVE) mg/dL Urine Occult Blood Large (NEGATIVE) Urine Nitrite Negative (NEGAITVE) Urine Bilirubin Negative (NEGATIVE) Urine Urobilinogen Normal (NORMAL) mg/dL Ur Leukocyte Esterase Moderate (NEGATIVE) Urine RBC 20-30 H (0-5) Urine WBC 30-40 H (0-5) Ur Epithelial Cells Few Amorphous Sediment Not seen Urine Bacteria Moderate Urine Mucus Not seen Ketones (NEGATIVE) 10/02/18 10/02/18 10/02/18 Range/Units 20:46 20:46 20:46 WBC (4.5-11.0) K/uL RBC (4.30-5.90) M/uL Hgb (12.0-15.0) g/dL Hct (40.0-54.0) % MCV (80-98) fL MCH (27-31) pg MCHC (32-36) % Plt Count (150-400) K/uL Neut % (Auto) (36-66) % Lymph % (Auto) (24-44) % [place] % (Auto) (2-6) % Eos % (Auto) (2-4) % Baso % (Auto) (0-1) % Sodium (140-148) mmol/L Potassium (3.6-5.2) mmol/L Chloride (100-108) mmol/L Carbon Dioxide (21-32) mmol/L Anion Gap (5.0-14.0) mmol/L BUN (7-18) mg/dL Creatinine (0.8-1.3) mg/dL Est Cr Clr Drug Dosing mL/min Estimated GFR (MDRD) (>60) Glucose (74-106) mg/dL Lactic Acid 1.8 (0.4-2.0) mmol/L Calcium (8.5-10.1) mg/dL Total Bilirubin (0.2-1.0) mg/dL AST (15-37) U/L ALT (12-78) U/L Alkaline Phosphatase (46-116) U/L Troponin I (0.000-0.056) ng/mL C-Reactive Protein 13.76 H (0.0-0.3) mg/dL Total Protein (6.4-8.2) g/dL Albumin (3.4-5.0) g/dL Globulin (2.3-3.5) g/dL Albumin/Globulin Ratio (1.2-2.2) Urine Color Urine Appearance Urine pH (4.5-8.0) Ur Specific [place] (1.008-1.030) Urine Protein (NEGATIVE) mg/dL Urine Glucose (UA) (NEGATIVE) mg/dL Urine Ketones (NEGATIVE) mg/dL Urine Occult Blood (NEGATIVE) Urine Nitrite (NEGAITVE) Urine Bilirubin (NEGATIVE) Urine Urobilinogen (NORMAL) mg/dL Ur Leukocyte Esterase (NEGATIVE) Urine RBC (0-5) Urine WBC (0-5) Ur Epithelial Cells Amorphous Sediment Urine Bacteria Urine Mucus Ketones Negative (NEGATIVE) 10/03/18 10/03/18 Range/Units 05:50 05:50 WBC 13.3 H (4.5-11.0) K/uL RBC 3.73 L (4.30-5.90) M/uL Hgb 12.1 (12.0-15.0) g/dL Hct 35.3 L (40.0-54.0) % MCV 95 (80-98) fL MCH 32 H (27-31) pg MCHC 34 (32-36) % Plt Count 227 (150-400) K/uL Neut % (Auto) 70 H (36-66) % Lymph % (Auto) 13 L (24-44) % [place] % (Auto) 13 H (2-6) % Eos % (Auto) 3 (2-4) % Baso % (Auto) 0 (0-1) % Sodium 139 L (140-148) mmol/L Potassium 4.2 (3.6-5.2) mmol/L Chloride 105 (100-108) mmol/L Carbon Dioxide 23 (21-32) mmol/L Anion Gap 15.2 H (5.0-14.0) mmol/L BUN 22 H (7-18) mg/dL Creatinine 1.3 (0.8-1.3) mg/dL Est Cr Clr Drug Dosing 52.29 mL/min Estimated GFR (MDRD) 54 L (>60) Glucose 260 H (74-106) mg/dL Lactic Acid (0.4-2.0) mmol/L Calcium 8.7 (8.5-10.1) mg/dL Total Bilirubin (0.2-1.0) mg/dL AST (15-37) U/L ALT (12-78) U/L Alkaline Phosphatase (46-116) U/L Troponin I (0.000-0.056) ng/mL C-Reactive Protein (0.0-0.3) mg/dL Total Protein (6.4-8.2) g/dL Albumin (3.4-5.0) g/dL Globulin (2.3-3.5) g/dL Albumin/Globulin Ratio (1.2-2.2) Urine Color Urine Appearance Urine pH (4.5-8.0) Ur Specific [place] (1.008-1.030) Urine Protein (NEGATIVE) mg/dL Urine Glucose (UA) (NEGATIVE) mg/dL Urine Ketones (NEGATIVE) mg/dL Urine Occult Blood (NEGATIVE) Urine Nitrite (NEGAITVE) Urine Bilirubin (NEGATIVE) Urine Urobilinogen (NORMAL) mg/dL Ur Leukocyte Esterase (NEGATIVE) Urine RBC (0-5) Urine WBC (0-5) Ur Epithelial Cells Amorphous Sediment Urine Bacteria Urine Mucus Ketones (NEGATIVE) Med Orders - Current: Current Medications Acetaminophen (Tylenol) 650 mg PO Q4H PRN PRN Reason: Pain/Fever Hydrocodone Bitart/Acetaminophen ([place] 325-5 Mg) 1 tab PO Q4H PRN PRN Reason: Pain Albuterol (Proventil Neb Soln) 2.5 mg NEB Q4H PRN PRN Reason: Shortness Of Breath/wheezing Amlodipine Besylate (Norvasc) 10 mg PO DAILY [facility] Aspirin (Halfprin) 81 mg PO DAILY [facility] Ciprofloxacin (Ciprofloxacin Hcl) 500 mg PO BID [facility] Heparin Sodium (Porcine) (Heparin Sodium) 5,000 units SUBCUT Q8H [facility] Sodium Chloride (Normal Saline) 1,000 mls @ 125 mls/hr IV ASDIRECTED [facility] Last Admin: 10/03/18 07:20 Dose: 125 mls/hr Insulin Human Isoph/Insulin Regular (Humulin 70-30) 12 units SUBCUT WITHDINNER [facility] Insulin Human Isoph/Insulin Regular (Humulin 70-30) 27 units SUBCUT WITHBREAKFAST [facility] Insulin Human Lispro (Humalog) 0 unit SUBCUT TIDMEALS [facility]; Protocol Last Admin: 10/03/18 11:56 Dose: 3 units Levothyroxine Sodium (Levothyroxine) 25 mcg PO ACBREAKFAST [facility] Metoprolol Succinate (Toprol Xl) 25 mg PO DAILY [facility] Non-Formulary Medication (Gabapentin [Neurontin]) 600 mg PO BID [facility] Non-Formulary Medication (Losartan [Cozaar]) 100 mg PO DAILY [facility] Ondansetron HCl (Zofran Odt) 4 mg PO Q6H PRN PRN Reason: Nausea able to take PO Senna/Docusate Sodium (Senna Plus) 1 tab PO BID PRN PRN Reason: Constipation Sertraline HCl (Zoloft) 75 mg PO DAILY [facility] Sodium Chloride (Saline Flush) 10 ml FLUSH ASDIRECTED PRN PRN Reason: Keep Vein Open Last Admin: 10/02/18 20:45 Dose: 10 ml Discontinued Medications Acetaminophen (Tylenol Extra Strength) 1,000 mg PO Q12H PRN PRN Reason: Pain Last Admin: 10/03/18 07:26 Dose: 1,000 mg Heparin Sodium (Porcine) (Heparin Sodium) 5,000 units SUBCUT Q8H [facility] Last Admin: 10/03/18 05:47 Dose: Not Given Sodium Chloride (Normal Saline) 1,000 mls @ 999 mls/hr IV ASDIRECTED [facility] Last Admin: 10/02/18 20:45 Dose: 999 mls/hr Ceftriaxone Sodium 1 gm/ (Sodium Chloride) 50 mls @ 100 mls/hr IV ONETIME ONE Stop: 10/02/18 22:08 Last Admin: 10/02/18 22:10 Dose: 100 mls/hr Ceftriaxone Sodium 2 gm/ (Sodium Chloride) 50 mls @ 100 mls/hr IV Q24H [facility] Last Admin: 10/03/18 03:34 Dose: Not Given Ceftriaxone Sodium 2 gm/ (Sodium Chloride) 50 mls @ 100 mls/hr IV Q24H [facility] Trazodone HCl (Trazodone) 50 mg PO BEDTIME ONE Stop: 10/03/18 00:58 Last Admin: 10/03/18 02:44 Dose: Not Given - Exam Quality Assessment: No: Supplemental Oxygen General: Alert, Oriented, Cooperative, No Acute Distress Lungs: Normal Respiratory Effort Cardiovascular: Regular Rate, Regular Rhythm GI/Abdominal Exam: Soft, No Distention Extremities: No Pedal Edema Skin: Warm, Dry Psy/Mental Status: Alert, Normal Affect - Problem List & Annotations (1) Acute cystitis with hematuria SNOMED Code(s): 41893037, 91737060 Code(s): N30.01 - ACUTE CYSTITIS WITH HEMATURIA Status: Acute Priority: Medium Current Visit: Yes (2) Diabetes mellitus, type II, insulin dependent SNOMED Code(s): 198142850 Code(s): E11.9 - TYPE 2 DIABETES MELLITUS WITHOUT COMPLICATIONS; 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 Status: Chronic Current Visit: Yes (3) CKD (chronic kidney disease), stage III SNOMED Code(s): 441504786 Code(s): N18.3 - CHRONIC KIDNEY DISEASE, STAGE 3 (MODERATE) Status: Chronic Current Visit: Yes - Problem List Review Problem List Initiated/Reviewed/Updated: Yes - My Orders Last 24 Hours: My Active Orders 10/03/18 10:54 Ready for Discharge [RC] PER UNIT ROUTINE 10/03/18 13:37 Acetaminophen [Tylenol] 650 mg PO Q4H PRN 10/03/18 14:32 Acetaminophen/HYDROcodone [[place] 325-5 MG] 1 tab PO Q4H PRN 10/03/18 14:35 Up With Assistance [RC] ASDIRECTED 10/03/18 14:36 Discontinue Telemetry Monitoring [Cardiac Monitoring Discontinue] [RC] Click to Edit 10/03/18 14:45 Aspirin [Halfprin] 81 mg PO DAILY Gabapentin [Neurontin] 600 mg PO BID Losartan [Cozaar] 100 mg PO DAILY Metoprolol Succinate [Toprol XL] 25 mg PO DAILY amLODIPine [Norvasc] 10 mg PO DAILY 10/03/18 17:00 Insulin NPH/Insulin Reg,Human [HumuLIN 70-30] 12 units SUBCUT WITHDINNER 10/03/18 21:00 Ciprofloxacin [Ciprofloxacin HCl] 500 mg PO BID 10/04/18 05:00 BASIC METABOLIC PANEL,BMP [CHEM] Timed CBC W/O DIFF,HEMOGRAM [HEME] Timed (1) 10/04/18 07:30 Levothyroxine 25 mcg PO ACBREAKFAST 10/04/18 08:00 Insulin NPH/Insulin Reg,Human [HumuLIN 70-30] 27 units SUBCUT WITHBREAKFAST 10/04/18 09:00 Sertraline [Zoloft] 75 mg PO DAILY - Plan Plan:: ASSESSMENT AND PLAN - Acute cystitis without hematuria - no evidence for sepsis. Still spiking fevers but otherwise doing well. -Antibiotic coverage with ciprofloxacin -Continue gentle fluids Insulin-dependent diabetes mellitus - moderate elevation of blood sugars. -Continue home medications -Sliding-scale insulin Stage III chronic kidney disease - creatinine stable at this time. Maintenance issues - - DVT prophylaxis - patient declines SCDs and heparin - GI prophylaxis - restart home PPI after discharge - Nutrition - diabetic diet - Salgado catheter - not indicated Disposition - I anticipate discharge home tomorrow Primary care physician - [place] [facility] Donny Veras M.D.
[2018-10-03] MEDS ORDERED: Non-Formulary Medication 1 Each (Gabapentin [Neurontin] 600 MG) PO SCH (14:45)
[2018-10-03] MEDS ORDERED: Non-Formulary Medication 1 Each (Losartan [Cozaar] 100 MG) PO SCH (14:45)
[2018-10-03] MEDS: Acetaminophen 325 MG Tab PO PRN ×2 (15:02→19:53)
[2018-10-03] MEDS: Aspirin 81 MG Tab.EC PO SCH (15:04)
[2018-10-03] MEDS: Gabapentin 300 MG Cap PO SCH ×2 (15:04→21:02)
[2018-10-03] MEDS: Losartan 50 MG Tab PO SCH (15:05)
[2018-10-03] MEDS: amLODIPine 10 MG Tab PO SCH (15:06)
[2018-10-03] MEDS ORDERED: Metoprolol Succinate 25 MG Tab.ER PO SCH ×2 (15:30→21:00)
[2018-10-03] MEDS ORDERED: Insulin NPH/Insulin Regular,Human 70-30 100 Units/ML 10 ML Vial SUBCUT SCH (17:00)
[2018-10-03] MEDS: Ciprofloxacin 500 MG Tab PO SCH (21:02)
[2018-10-03] MEDS ORDERED: cefTRIAXone 2 GM in Sodium Chloride 0.9% 50 ML IV SCH (23:00)
[2018-10-04] MEDS: Acetaminophen 325 MG Tab PO PRN (05:11)
[2018-10-04] MEDS: Sodium Chloride 0.9% 1,000 ML IV SCH (05:15)
[2018-10-04] MEDS: Heparin Sodium 5,000 Units/ML Vial SUBCUT SCH (06:04)
[2018-10-04] MEDS ORDERED: Levothyroxine 25 MCG Tab PO SCH (07:30)
[2018-10-04] MEDS: Ciprofloxacin 500 MG Tab PO SCH (07:50)
[2018-10-04] MEDS ORDERED: Insulin Lispro 100 Unit/ML 3 ML KwikPen SUBCUT SCH (08:00)
[2018-10-04] MEDS ORDERED: Insulin NPH/Insulin Regular,Human 70-30 100 Units/ML 10 ML Vial SUBCUT SCH (08:00)
[2018-10-04] MEDS: Gabapentin 300 MG Cap PO SCH (08:45)
[2018-10-04] MEDS: amLODIPine 10 MG Tab PO SCH (08:45)
[2018-10-04] MEDS: Aspirin 81 MG Tab.EC PO SCH (08:46)
[2018-10-04] MEDS: Losartan 50 MG Tab PO SCH (08:49)
[2018-10-04] MEDS ORDERED: Sertraline 50 MG, Sertraline 25 MG PO SCH ×2 (09:00)
[2018-10-04] MEDS ORDERED: Sertraline 50 MG Tab PO SCH (09:00)
--- NOTE | 2018-10-04 10:21 | PCM.DCSUM1 ---
Discharge Summary - Hospital Course Brief History: 73-year-old male with history of diabetes, coronary artery disease and previous urinary tract infections with sepsis who presented with fever, weakness and confusion. He was admitted for management of recurrent urinary tract infection. Diagnosis: Stroke: No - Discharge Data Discharge Date: 10/04/18 Discharge Disposition: Home, Self-Care 01 Condition: Good - Discharge Diagnosis/Problem(s) (1) Acute cystitis with hematuria SNOMED Code(s): 83810473, 47394982 ICD Code: N30.01 - ACUTE CYSTITIS WITH HEMATURIA Status: Acute Priority: Medium (2) Diabetes mellitus, type II, insulin dependent SNOMED Code(s): 372083992 ICD Code: E11.9 - TYPE 2 DIABETES MELLITUS WITHOUT COMPLICATIONS; Z79.4 - CORRECTION (CURRENT) USE OF INSULIN Status: Chronic (3) CKD (chronic kidney disease), stage III SNOMED Code(s): 130486854 ICD Code: N18.3 - CHRONIC KIDNEY DISEASE, STAGE 3 (MODERATE) Status: Chronic - Patient Summary/Data Consults: Consultations 10/02/18 22:41 OT Evaluation and Treatment [CONS] Routine Please Evaluate and Treat. OT Reason for Consult: Strengthening This query below is only for informational purposes and is not editable. PT Evaluation and Treatment [CONS] Routine Please Evaluate and Treat. PT Reason for Consult: Strengthening This query below is only for informational purposes and is not editable. Hospital Course: Sanjiv presented to the emergency room with fever, weakness and confusion. Workup in the emergency room was suggestive of a urinary tract infection but there was no strong evidence to support sepsis. He was not hypotensive or tachycardic lactic acid level was normal. Initially he received a dose of ceftriaxone along with IV fluids. It was noted after the dose was given that his allergy list included ceftriaxone so we abandoned this antibiotic in favor of ciprofloxacin. Overnight following admission he did fairly well. He worked with physical therapy the morning after and did quite well as far as strength. He continued to have temperature elevations the morning after admission. Initially we were thinking maybe it would go home but with the persistent fevers we elected to keep him another night. His vital signs have all remained stable. Symptomatically he is doing well. Temperature curve has improved but he continues to have a very low-grade temperature elevations. He is feeling well and is interested in going home at this time. His urine culture is growing mixed luc by think he would benefit from additional anabiotic therapy given the fevers and high degree of certainty that he had a urinary tract infection at presentation given his symptoms. He'll be discharged home with his . Additional antibiotic therapy will be with ciprofloxacin. He will follow-up as needed. - Patient Instructions Diet: Diabetic Diet Activity: As Tolerated Showering/Bathing: May Shower Notify Provider of: Fever, Increased Pain Other/Special Instructions: 1. You were in the hospital for management of a urinary tract infection. Your urine culture is pending at this time and we have not determined the causative bacteria as of yet. I recommend additional antibiotic therapy with ciprofloxacin. These take 500 mg twice daily for 8 more days. Your first dose will be due tonight. I will contact you if the culture returns with a bacteria that is resistant to the antibiotic. I do recommend that you take a probiotic while you are taking antibiotics. 2. Continue your other home medications as previously prescribed. 3. Seek medical attention if you fever greater than 101, severe abdominal pain or if you develop profound weakness - Discharge Plan *PRESCRIPTION DRUG MONITORING PROGRAM REVIEWED*: Not Applicable *COPY OF PRESCRIPTION DRUG MONITORING REPORT IN PATIENT KEEGAN: Not Applicable Prescriptions/Med Rec: Ciprofloxacin [Ciprofloxacin HCl] 500 mg PO BID #16 tab Home Medications: Home Meds Acetaminophen 1,000 mg PO DAILY 10/02/18 [History] Acetaminophen/HYDROcodone [[place] 325-5 MG] 1 tab PO Q4H PRN 10/02/18 [History] Ascorbate Calcium/Bioflavonoid [Karmen-C 500 MG] 500 mg PO DAILY 10/02/18 [ History] Aspirin [Halfprin] 81 mg PO DAILY 10/02/18 [History] Azelastine [Optivar 0.05% Ophth Soln] 2 spray IN DAILY 10/02/18 [History] Ferrous Sulfate 325 mg PO DAILY 10/02/18 [History] Gabapentin [Neurontin] 600 mg PO BID 10/02/18 [History] Insulin NPH/Insulin Reg,Human [Novolin 70-30] 27 units PO DAILY 10/02/18 [ History] Levothyroxine 25 mcg PO ACBREAKFAST 10/02/18 [History] Losartan [Cozaar] 100 mg PO DAILY 10/02/18 [History] Memantine HCl 10 mg PO ASDIRECTED 10/02/18 [History] Methocarbamol [Robaxin-750] 750 mg PO DAILY 10/02/18 [History] Metoprolol Succinate 25 mg PO DAILY 10/02/18 [History] Multivit-Min/FA/Lycopen/Lutein [Centrum Silver Men Tablet] 1 each PO DAILY 10/02 [History] Nitroglycerin [Nitrostat] 0.4 mg SL ASDIRECTED 10/02/18 [History] Suncook-3/DHA/Epa/Fish Oil [Fish Oil 1,000 mg Softgel] 2,000 mg PO DAILY 10/02/18 [History] Omeprazole 20 mg PO DAILY 10/02/18 [History] Saliva Substitution Combo No.9 [Biotene] 237 ml MM ASDIRECTED 10/02/18 [History] Sennosides/Docusate Sodium [Docusate Sodium-Senna Tablet] 1 each PO ASDIRECTED 10/02/18 [History] Sertraline [Zoloft] 75 mg PO DAILY 10/02/18 [History] amLODIPine [Norvasc] 10 mg PO DAILY 10/02/18 [History] traMADol HCl [Tramadol HCl] 50 g PO BID 10/02/18 [History] traZODone HCl [Trazodone HCl] 50 mg PO DAILY 10/02/18 [History] Ciprofloxacin [Ciprofloxacin HCl] 500 mg PO BID #16 tab 10/03/18 [Rx] Insulin NPH/Insulin Reg,Human [Novolin 70-30] 12 unit SQ WITHDINNER 10/03/18 [ History] Oxygen Therapy Mode: Room Air Patient Handouts: Urinary Tract Infection, Adult, Ciprofloxacin tablets Referrals: PCP,None [Primary Care Provider] - (Follow-up as needed if symptoms do not continue to get better or if they get worse) - Discharge Summary/Plan Comment DC Time >30 min.: No - Patient Data Vitals - Most Recent: Last Vital Signs Temp 37.4 C 10/04/18 07:39 Pulse 80 10/04/18 07:39 Resp 18 10/04/18 07:39 BP 145/47 H 10/04/18 08:49 Pulse Ox 95 10/04/18 07:39 Weight - Most Recent: 96.797 kg I&O - Last 24 hours: Intake & Output 10/03/18 10/04/18 10/04/18 22:59 06:59 14:59 Intake Total 1262 9613 Output Total 450 850 Balance 2014 503 Lab Results - Last 24 hrs: Laboratory Results - last 24 hr 10/04/18 10/04/18 Range/Units 05:32 05:32 WBC 16.8 H (4.5-11.0) K/uL RBC 3.85 L (4.30-5.90) M/uL Hgb 12.4 (12.0-15.0) g/dL Hct 35.0 L (40.0-54.0) % MCV 91 (80-98) fL MCH 32 H (27-31) pg MCHC 35 (32-36) % Plt Count 197 (150-400) K/uL Sodium 138 L (140-148) mmol/L Potassium 4.0 (3.6-5.2) mmol/L Chloride 105 (100-108) mmol/L Carbon Dioxide 20 L (21-32) mmol/L Anion Gap 17.0 H (5.0-14.0) mmol/L BUN 15 (7-18) mg/dL Creatinine 1.2 (0.8-1.3) mg/dL Est Cr Clr Drug Dosing 56.65 mL/min Estimated GFR (MDRD) 59 L (>60) Glucose 175 H (74-106) mg/dL Calcium 8.9 (8.5-10.1) mg/dL ANGELA Results - Last 24 hrs: Microbiology 10/02/18 21:32 Urine Culture - Preliminary Urine, Bladder MIXED LUC DAY 1 10/02/18 21:50 Aerobic Blood Culture - Preliminary Blood - Arm, Left NO GROWTH AFTER 1 DAY Anaerobic Blood Culture - Preliminary NO GROWTH AFTER 1 DAY 10/02/18 21:40 Aerobic Blood Culture - Preliminary Blood - Arm, Left NO GROWTH AFTER 1 DAY Anaerobic Blood Culture - Preliminary NO GROWTH AFTER 1 DAY Med Orders - Current: Current Medications Acetaminophen (Tylenol) 650 mg PO Q4H PRN PRN Reason: Pain/Fever Last Admin: 10/04/18 05:11 Dose: 650 mg Hydrocodone Bitart/Acetaminophen ([place] 325-5 Mg) 1 tab PO Q4H PRN PRN Reason: Pain Albuterol (Proventil Neb Soln) 2.5 mg NEB Q4H PRN PRN Reason: Shortness Of Breath/wheezing Amlodipine Besylate (Norvasc) 10 mg PO DAILY EZ Last Admin: 10/04/18 08:45 Dose: 10 mg Aspirin (Halfprin) 81 mg PO DAILY [facility] Last Admin: 10/04/18 08:46 Dose: Not Given Ciprofloxacin (Ciprofloxacin Hcl) 500 mg PO BID@0730,2100 [facility] Last Admin: 10/04/18 07:50 Dose: 500 mg Gabapentin (Neurontin) 600 mg PO BID [facility] Last Admin: 10/04/18 08:45 Dose: 600 mg Heparin Sodium (Porcine) (Heparin Sodium) 5,000 units SUBCUT Q8H [facility] Last Admin: 10/04/18 06:04 Dose: Not Given Sodium Chloride (Normal Saline) 1,000 mls @ 125 mls/hr IV ASDIRECTED [facility] Last Admin: 10/04/18 05:15 Dose: 125 mls/hr Insulin Human Isoph/Insulin Regular (Humulin 70-30) 12 units SUBCUT WITHDINNER [facility] Last Admin: 10/03/18 16:59 Dose: 12 units Insulin Human Isoph/Insulin Regular (Humulin 70-30) 27 units SUBCUT WITHBREAKFAST [facility] Last Admin: 10/04/18 08:56 Dose: 27 units Insulin Human Lispro (Humalog) 0 unit SUBCUT QIDACANDBED [facility]; Protocol Last Admin: 10/04/18 08:47 Dose: 1 unit Levothyroxine Sodium (Levothyroxine) 25 mcg PO ACBREAKFAST [facility] Last Admin: 10/04/18 07:50 Dose: 25 mcg Losartan Potassium (Cozaar) 100 mg PO DAILY [facility] Last Admin: 10/04/18 08:49 Dose: 100 mg Metoprolol Succinate (Toprol Xl) 25 mg PO BEDTIME [facility] Last Admin: 10/03/18 21:02 Dose: 25 mg Ondansetron HCl (Zofran Odt) 4 mg PO Q6H PRN PRN Reason: Nausea able to take PO Senna/Docusate Sodium (Senna Plus) 1 tab PO BID PRN PRN Reason: Constipation Sertraline HCl 50 mg/ (Sertraline HCl 25 mg) 75 mg PO DAILY [facility] Last Admin: 10/04/18 08:49 Dose: 75 mg Sodium Chloride (Saline Flush) 10 ml FLUSH ASDIRECTED PRN PRN Reason: Keep Vein Open Last Admin: 10/02/18 20:45 Dose: 10 ml Discontinued Medications Acetaminophen (Tylenol Extra Strength) 1,000 mg PO Q12H PRN PRN Reason: Pain Last Admin: 10/03/18 07:26 Dose: 1,000 mg Heparin Sodium (Porcine) (Heparin Sodium) 5,000 units SUBCUT Q8H [facility] Last Admin: 10/03/18 05:47 Dose: Not Given Sodium Chloride (Normal Saline) 1,000 mls @ 999 mls/hr IV ASDIRECTED [facility] Last Admin: 10/02/18 20:45 Dose: 999 mls/hr Ceftriaxone Sodium 1 gm/ (Sodium Chloride) 50 mls @ 100 mls/hr IV ONETIME ONE Stop: 10/02/18 22:08 Last Admin: 10/02/18 22:10 Dose: 100 mls/hr Ceftriaxone Sodium 2 gm/ (Sodium Chloride) 50 mls @ 100 mls/hr IV Q24H [facility] Last Admin: 10/03/18 03:34 Dose: Not Given Ceftriaxone Sodium 2 gm/ (Sodium Chloride) 50 mls @ 100 mls/hr IV Q24H [facility] Insulin Human Lispro (Humalog) 0 unit SUBCUT TIDMEALS [facility]; Protocol Last Admin: 10/03/18 21:09 Dose: 3 units Metoprolol Succinate (Toprol Xl) 25 mg PO DAILY [facility] Last Admin: 10/03/18 15:06 Dose: Not Given Trazodone HCl (Trazodone) 50 mg PO BEDTIME ONE Stop: 10/03/18 00:58 Last Admin: 10/03/18 02:44 Dose: Not Given - Exam Quality Assessment: Denies: Supplemental Oxygen General: Reports: Alert, Oriented, Cooperative, No Acute Distress Lungs: Reports: Normal Respiratory Effort GI/Abdominal Exam: Soft, No Distention Extremities: No Pedal Edema Psy/Mental Status: Reports: Alert, Normal Affect
== END 2018-10-04 11:45 | disposition home or self-care (01) ==
LOC: JP.ED 19:30 → JP.MS 22:41
PROVIDERS: ADMIT Family Medicine; ATTEND Family Medicine
DX: N30.01 Acute cystitis with hematuria (principal); J44.9 Chronic obstructive pulmonary disease, unspecified; I12.9 Hypertensive chronic kidney disease with stage 1 through stage 4 chronic kidney disease, or unspecified chronic kidney disease; N18.3 Chronic kidney disease, stage 3 (moderate); E11.22 Type 2 diabetes mellitus with diabetic chronic kidney disease; E03.9 Hypothyroidism, unspecified; E11.42 Type 2 diabetes mellitus with diabetic polyneuropathy; K21.9 Gastro-esophageal reflux disease without esophagitis; I25.10 Atherosclerotic heart disease of native coronary artery without angina pectoris; F32.9 Major depressive disorder, single episode, unspecified; F03.90 Unspecified dementia, unspecified severity, without behavioral disturbance, psychotic disturbance, mood disturbance, and anxiety; D50.9 Iron deficiency anemia, unspecified; Z79.4 Long term (current) use of insulin; Z79.899 Other long term (current) drug therapy; Z79.82 Long term (current) use of aspirin; Z88.0 Allergy status to penicillin; Z88.1 Allergy status to other antibiotic agents; Z88.7 Allergy status to serum and vaccine; Z88.8 Allergy status to other drugs, medicaments and biological substances; Z88.2 Allergy status to sulfonamides; Z87.891 Personal history of nicotine dependence
CPT/HCPCS: 36415; 71045; 80048; 80053; 81001; 82009; 82962; 83605; 84484; 85025; 85027; 86140; 87040; 87086; 96361; 96365; 97161; 99284; A9270; G0378; J0696; J1815; J7030; J7050; 96360